=== PATIENT | female | born 1960 | race Caucasian/White ===

== ENCOUNTER 2020-12-01 09:30 | Emergency (ER) | payer OTHER ==
[2020-12-01 09:53] VITALS: BP 158/73; PULSE 87; RESP 16; TEMP 97.9
[2020-12-01] MEDS ORDERED: DIPH,PERTUS(ACELL)TETVAC-LF 0.5 ML VIAL IM ONE (10:09)
[2020-12-01] MEDS ORDERED: LORazepam 1 MG TAB PO STA (10:16)
--- NOTE | 2020-12-01 10:21 | ED ---
General Adult HPI - General Chief complaint: Wound/Laceration Stated complaint: finger lac Time Seen by Provider: 12/01/20 09:59 Source: patient, RN notes reviewed Mode of arrival: ambulatory Limitations: no limitations - History of Present Illness Initial comments: Patient 60-year-old female presenting to the emergency room today with chief complaint of a laceration to the left index finger. Patient does admit that she was chopping some cabbage. She states that she accidentally cut the tip of the left index finger. She states she's unsure of her tetanus status. She admits to pain locally. She denies any other complaints or symptoms at this time. Patient denies any recent fever, chills, shortness of breath, chest pain, back pain, abdominal pain, nausea or vomiting, headaches or visual changes, or any other complaints. - Related Data Previous Rx's Medication Instructions Recorded Cephalexin [Keflex] 500 mg PO TID 10 Days cap 12/01/20 Ibuprofen [Motrin] 600 mg PO Q6HR PRN #40 day 12/01/20 Allergies Allergy/AdvReac Type Severity Reaction Status Date / Time Penicillins Allergy Unknown Verified 12/01/20 09:53 Review of Systems ROS Statement: Those systems with pertinent positive or pertinent negative responses have been documented in the HPI. ROS Other: All systems not noted in ROS Statement are negative. Past Medical History Past Medical History: Asthma Additional Past Surgical History / Comment(s): ovary removed Past Psychological History: Depression Smoking Status: Never smoker Past Alcohol Use History: Occasional Past Drug Use History: None Reported General Exam - General Exam Comments Initial Comments: General: The patient is awake and alert, in no distress, and does not appear acutely ill. Eye: extra-ocular movements are intact. There is normal conjunctiva bilaterally. No signs of icterus. Ears, nose, mouth and throat: There are moist mucous membranes and no oral lesions. Neck: The neck is supple Respiratory: respirations are non-labored, breath sounds are equal. No wheezes, stridor Musculoskeletal: Partial amputation of the distal tip of the left index finger. There is bleeding locally. Neurological: A&O x 3. CN II-XII intact, There are no obvious motor or sensory deficits. Coordination appears grossly intact. Speech is normal. Skin: Skin is warm and dry and no rashes or lesions are noted. Psychiatric: Cooperative, appropriate mood & affect, normal judgment. Limitations: no limitations Course Vital Signs 12/01/20 09:49 Temperature 97.9 F Pulse Rate 87 Respiratory 16 Rate Blood Pressure 158/73 O2 Sat by Pulse 99 Oximetry Medical Decision Making - Medical Decision Making X-ray was reviewed and shows no evidence of fracture. There is soft tissue injury to the left index finger. Area was cleaned here in emergency room and Gelfoam was placed over top. Patient will be started on antibiotics and advised follow-up with hand specialist. Advised return here to emergency room for any other concerns. Disposition Clinical Impression: Fingertip amputation Disposition: HOME SELF-CARE Condition: Good Additional Instructions: Please use medication as discussed. Please follow-up with orthopedics as discussed. Please return to emergency room if the symptoms increase or worsen or for any other concerns. Prescriptions: Cephalexin [Keflex] 500 mg PO TID 10 Days cap Ibuprofen [Motrin] 600 mg PO Q6HR PRN #40 day PRN Reason: Pain Is patient prescribed a controlled substance at d/c from ED?: No Referrals: Barbara Salas III, MD [Primary Care Provider] - 1-2 days Trung Rose MD [STAFF PHYSICIAN] - 1-2 days Cliff Lee DO [Doctor of Osteopathic Medicine] - 1-2 days Time of Disposition: 11:26
[2020-12-01] MEDS ORDERED: GELATIN SPONGE,ABSORB (SMALL) 1 EACH SPONGE TOPICAL STA (10:30)
--- NOTE | 2020-12-01 10:53 | XR ---
Left finger HISTORY: Laceration 3 views of the second digit left hand Soft tissue defect is present consistent with patient's history of laceration. There is no radio opaq ue foreign body. Alignment is maintained. Bone mineralization is reduced. No dislocation. No fracture . IMPRESSION: Soft tissue injury.
== END 2020-12-01 11:36 | disposition home or self-care (01) ==
LOC: EC 09:30
DX: S68.121A Partial traumatic metacarpophalangeal amputation of left index finger, initial encounter (principal); Z23 Encounter for immunization; Z88.0 Allergy status to penicillin; W26.0XXA Contact with knife, initial encounter; Y93.G3 Activity, cooking and baking; Y92.000 Kitchen of unspecified non-institutional (private) residence as the place of occurrence of the external cause
CPT/HCPCS: 90471; 90715; 99283